=== PATIENT | male | born 1985 | race Two or more races ===

== ENCOUNTER 2021-05-14 14:35 | Emergency (ER) | payer MEDICAID ==
[~2021-05-14] VITALS: Ht 188 cm; Wt 92.0 kg
[2021-05-14] MEDS ORDERED: BUPIVACAINE HCL/PF 0.25% 10 ML VIAL PERC ONE (15:00)
[2021-05-14] MEDS ORDERED: LIDOCAINE 1% 10 ML VIAL PERC ONE (15:00)
[2021-05-14] MEDS ORDERED: HYDROCODONE/ACETAMINOPHEN 5-325 MG TABLET PO ONE (15:15)
[2021-05-14 17:10] VITALS: BP 140/91
== END 2021-05-14 17:38 | disposition home or self-care (01) ==
LOC: EMS 14:35
DX: S62.635A Displaced fracture of distal phalanx of left ring finger, initial encounter for closed fracture (principal); S61.215A Laceration without foreign body of left ring finger without damage to nail, initial encounter; F17.210 Nicotine dependence, cigarettes, uncomplicated; X58.XXXA Exposure to other specified factors, initial encounter; Y93.89 Activity, other specified; Y92.89 Other specified places as the place of occurrence of the external cause; Y99.8 Other external cause status
CPT/HCPCS: 29130; 73140; 96372; 99283; J0690; J3490 ×2